=== PATIENT | female | born 1995 | race Caucasian/White ===

== ENCOUNTER 2017-10-22 17:08 | Emergency (ER) | payer OTHER ==
[~2017-10-22] VITALS: Ht 165.1 cm; Wt 90.7 kg
[2017-10-22] MEDS ORDERED: IBUP600 PO (18:09)
[2017-10-22] MEDS ORDERED: CRUTCH4 XX (18:09)
== END 2017-10-22 18:18 | disposition home or self-care (01) ==
LOC: ER 17:08
DX: M25.562 Pain in left knee (principal); F17.200 Nicotine dependence, unspecified, uncomplicated; V86.56XA Driver of dirt bike or motor/cross bike injured in nontraffic accident, initial encounter
CPT/HCPCS: 29505; 99282-25